=== PATIENT | male | born 1950 | race Caucasian/White ===

== ENCOUNTER 2023-01-09 14:10 | Emergency (ER) | payer MEDICARE, BC, SELFPAY ==
[2023-01-09] VITALS (32 sets, daily range): BP systolic 87–124; BP diastolic 38–74; PULSE 98–134; RESP 18–21; TEMP 36.5–36.9; O2SAT 91–97; BMI 25.8
[2023-01-09 14:48] LABS: Basophils Absolute Auto 0.04 K/uL (0.00-0.30); Basophils Percent Auto 0.4 % (0.0-3.0); Eosinophils Absolute Auto 0.01 K/uL (0.00-0.50); Eosinophils Percent Auto 0.1 % (0.0-7.0); Hematocrit 26.2 % (37.0-53.0); Hemoglobin* 8.4 gm/dL (13.5-17.5); Immature Granulocytes Abs Auto 0.08 K/uL (0.00-0.30); Immature Granulocytes Pct Auto 0.8 %; Lymphocytes Absolute Auto 2.19 K/uL (0.90-2.90); Lymphocytes Percent Auto 22.9 % (20-44); Mean Corpuscular HGB Conc 32 gm/dL (32-36); Mean Corpuscular Hemoglobin 27 pg (26-34); Mean Corpuscular Volume 83 fL (80-100); Monocytes Percent Auto 12.1 % (0.0-11.0); Neutrophils Percent Auto 63.7 % (42.0-72.0); Platelet Count* 380 K/uL (140-440); RDW Coefficient of Variation % 19.5 % (11.5-15.5); Red Blood Count 3.16 m/uL (4.30-5.90); White Blood Count* 9.58 K/uL (4.50-11.00)
[2023-01-09 14:49] LABS: Slide Review Reflex No
--- NOTE | 2023-01-09 14:50 | ED.NURSE ---
Call from lab, lactate 7, Dr. Bell notified.
[2023-01-09 14:55] LABS: Albumin* 2.6 g/dL (3.3-5.0); Chloride* 108 mmol/L (96-114)
[2023-01-09 14:56] LABS: Sodium* 137 mmol/L (135-149)
[2023-01-09 14:57] LABS: Potassium* 4.6 mmol/L (3.6-5.1)
[2023-01-09 14:58] LABS: Creatinine* 1.2 mg/dL (0.5-1.5); Est. Creatinine Clearance* 61.97; Estimated Glomerular Filt Rate 65 ml/min
[2023-01-09] MEDS: PANTOPRAZOLE SODIUM 40 MG INJ 80 MG IVP (14:58)
[2023-01-09 14:59] LABS: Alkaline Phosphatase* 130 U/L (40-150); Aspartate Amino Transferase* 77 U/L (12-35); Bilirubin Direct* 1.3 mg/dL (0.0-0.5); Bilirubin Total* 2.3 mg/dL (0.1-1.5); Blood Urea Nitrogen* 34 mg/dL (7-30); Calcium* 8.3 mg/dL (8.4-10.6); Carbon Dioxide* 17 mmol/L (20-32); Glucose* 125 mg/dL (60-115); Lipase* 89 U/L (23-300); Total Protein* 5.6 g/dL (6.0-8.3)
[2023-01-09] MEDS: 0.9 % SODIUM CHLORIDE 1000 ml 1,000 ML IV (14:59)
[2023-01-09 15:02] LABS: C Reactive Protein* 2.9 mg/dL (0.5-1.0); Ethanol* < 0.01 % (0.01-0.03)
[2023-01-09 15:05] LABS: Alanine Aminotransferase* 36 U/L (4-50)
[2023-01-09 15:07] LABS: INR 1.58 (0.91-1.10); Prothrombin Time 19.8 Seconds
[2023-01-09] MEDS: ONDANSETRON 2 MG/ML inj 4 MG IVP (15:10)
[2023-01-09 15:11] LABS: Troponin I* < 0.01 ng/mL (0.01-0.04)
[2023-01-09 15:25] LABS: Erythrocyte SedimentationRate* 29 mm/hr (2-15)
[2023-01-09 16:04] LABS: SARS PCR* POSITIVE SARS-CoV-2 (Negative)
--- NOTE | 2023-01-09 16:41 | ED_ITS ---
HPI - General Adult General Chief complaint: Weakness Stated complaint: Keeps nearly passing out, Blood in stool Time Seen by Provider: 01/09/23 14:16 Source: patient Mode of arrival: ambulatory Limitations: no limitations History of Present Illness HPI narrative: Patient is a 72-year-old male, extremely poor historian, coming in today complaining of vomiting blood. Patient states that was hospitalized at [facility] sometime in December for the same problem. He states that they ?got the bleeding stop and sent him home. ? He presents today with 2 days of nonstop vomiting. New patient does state that he has liver disease but does not know what kind of disease. He states that he feels poorly all over but denies any acute chest or abdominal pain. He does complain of weakness and not being able to eat for the last 2 days. I did call and speak to his , Demetra, who also states that he has liver disease (she is also not sure what kind of disease this is), COPD, alcohol use disorder. She states that while he was in [facility] he had a colonoscopy. I did speak to the nurse at [facility] who stated he also had an EGD on the 12 of December. Reviewing the extremely limited records that we received from [facility], it appears that the patient had an EGD and colonoscopy on the with a repeat EGD and colonoscopy on the . I do not have the results of either of those. His discharge medication list includes Paxil of bed as he was diagnosed with that sometime at the end december, Ventolin inhaler, Dulcolax suppositories p.r.n., melatonin as needed, multivitamin, all track some, omeprazole, Zofran, MiraLax, Mirapex, Crestor, sertraline, tramadol. His past medical history is significant for nicotine dependence, history of kidney stones, mental disorder of unclear etiology potentially secondary to previous alcohol abuse, obstructive sleep apnea, hypertension, history of TIA, COPD, alcoholic liver cirrhosis. Related Data Home Medications Medication Instructions Recorded Confirmed Advair 01/09/23 omeprazole 01/09/23 pramipexole 01/09/23 rosuvastatin 01/09/23 sertraline 01/09/23 Allergies Allergy/AdvReac Type Severity Reaction Status Date / Time No Known Drug Allergies Allergy Verified 01/09/23 14:28 Review of Systems Status of ROS: Reports: 6 or more systems reviewed and unremarkable except as noted in History and below [facility] Social History Smoking Status: Former smoker Non-prescribed substance use: denies use Non-prescribed substance use details: WAS drinking daily hard alcohol until two months ago. Exam Narrative: Exam Narrative: Well-nourished well-developed patient who vomits multiple times. Alert and oriented x3. Answers questions appropriately but is a very poor historian. Thoughts are goal oriented and rational. No tangential or magical thinking noted. Patient is pale. HEENT: Normocephalic atraumatic. Pupils are equally round reactive to light. Extraocular muscles are intact. Conjunctivae are moist without any icterus noted. Dry mucous membranes. Neck is soft. Patient is vomiting up maroon colored vomitus. Cardiovascular: Tachycardic without any murmurs Lungs: Clear to auscultation bilaterally no wheezes rhonchi or rales are appreciated. Abdomen: Protuberant and tympanic. Soft. Appears to have significant amount of ascites present. Normal bowel sounds. Extremities: Bilateral lower extremities are without edema. Skin: Pale, warm dry and intact Const: Vital Signs, click to edit/add: Vital Signs - 24 hr 01/09/23 14:17 01/09/23 14:10 01/09/23 15:30 Temperature 97.8 F Pulse Rate 131 H Pulse Rate [Left P ulse Oximeter] 116 H Respiratory Rate 20 Blood Pressure Blood Pressure [Le ft Upper Arm] 105/74 Pulse Oximetry 96 97 96 Oxygen Delivery Me thod Room Air 01/09/23 15:32 01/09/23 15:43 01/09/23 15:45 Temperature Pulse Rate 130 H 113 H 134 H Pulse Rate [Left P ulse Oximeter] Respiratory Rate Blood Pressure 88/51 L 103/70 Blood Pressure [Le ft Upper Arm] Pulse Oximetry 96 95 96 Oxygen Delivery Me thod 01/09/23 16:51 01/09/23 16:00 01/09/23 16:01 Temperature 98.1 F Pulse Rate 100 128 H 129 H Pulse Rate [Left P ulse Oximeter] Respiratory Rate 18 Blood Pressure 124/74 103/55 L Blood Pressure [Le ft Upper Arm] Pulse Oximetry 91 96 Oxygen Delivery Me thod 01/09/23 16:15 01/09/23 16:22 01/09/23 16:30 Temperature Pulse Rate 107 H 107 H 128 H Pulse Rate [Left P ulse Oximeter] Respiratory Rate Blood Pressure 87/40 L Blood Pressure [Le ft Upper Arm] Pulse Oximetry 96 95 95 Oxygen Delivery Me thod 01/09/23 16:31 01/09/23 16:45 01/09/23 16:53 Temperature Pulse Rate 128 H 110 H 98 Pulse Rate [Left P ulse Oximeter] Respiratory Rate Blood Pressure 92/38 L 124/72 Blood Pressure [Le ft Upper Arm] Pulse Oximetry 93 94 93 Oxygen Delivery Vt thod 01/09/23 17:00 01/09/23 17:02 01/09/23 17:12 Temperature 98.5 F Pulse Rate 106 H 105 H 110 H Pulse Rate [Left P ulse Oximeter] Respiratory Rate 20 Blood Pressure 114/62 114/72 Blood Pressure [Le ft Upper Arm] Pulse Oximetry 94 92 94 Oxygen Delivery Vt thod 01/09/23 17:03 01/09/23 17:15 01/09/23 17:17 Temperature Pulse Rate 108 H 111 H 109 H Pulse Rate [Left P ulse Oximeter] Respiratory Rate Blood Pressure 114/72 Blood Pressure [Le ft Upper Arm] Pulse Oximetry 91 96 95 Oxygen Delivery Vt thod 01/09/23 17:30 01/09/23 17:32 01/09/23 17:45 Temperature Pulse Rate 110 H 108 H 108 H Pulse Rate [Left P ulse Oximeter] Respiratory Rate Blood Pressure 98/61 Blood Pressure [Le ft Upper Arm] Pulse Oximetry 93 94 93 Oxygen Delivery Vt thod 01/09/23 17:47 01/09/23 17:57 Temperature 97.7 F Pulse Rate 131 H 107 H Pulse Rate [Left P ulse Oximeter] Respiratory Rate 18 Blood Pressure 106/57 L 106/57 L Blood Pressure [Le ft Upper Arm] Pulse Oximetry 93 Oxygen Delivery Me thod Course Course Hospital Course: Two IVs were placed and IV fluids were started right away. EKG, read by me, shows sinus tachycardia. Will start the patient IV Protonix and labs were drawn. Hemoglobin low at 8.4, 1 unit of packed red blood cells was ordered and given. I did speak to , ICU physician at [facility] who recommended we also start the patient on octreotide. Patient was accepted back to [facility] for admission. Pulse did come down to 103 from 130 with a L of fluid and blood pressure remained steady in the low 100s to 1 teens systolic. Reevaluation(s) Reevaluation #1: I was able to obtain better medical records for the patient. It appears that he was seen in the [place] ER on the 27 of December where he presented for shortness of breath. He was diagnosed with COVID-19 at that time and appears that his symptoms started around the or the 23 of December. He also had a paracentesis done during that visit with 3 L of fluid was obtained. At that time he also had a chest CT which showed bilateral atelectasis and peripheral ground-glass attenuation of the anterior right upper lobe. Abdomen pelvis CT showed findings suggestive of portal hypertension including moderate abdominal ascites, splenomegaly and small paraesophageal varices. He does have chronic hepatic parenchymal disease. Abdominal fluid was negative for malignancy. It appears that patient was admitted to the hospital on 12/12/2022 with a GI bleed that was thought to be secondary to portal hypertension gastropathy that was noted to be oozing and responded to an octreotide drip in the hospital. Appears that his hemoglobin on 12/27/2022 was 10.2. During that ER visit, his pulse was consistently in the low 100s to 1 teens, blood pressure however was in the 130s to 140s systolic. Vital Signs Vital signs: Initial Vital Signs Pulse Oximetry 97 01/09/23 14:10 Vital Signs Pulse Oximetry 97 01/09/23 14:10 Temperature 97.7 F 01/09/23 17:57 Pulse Rate 107 H 01/09/23 17:57 Respiratory Rate 18 01/09/23 17:57 Blood Pressure 106/57 L 01/09/23 17:57 Pulse Oximetry 93 01/09/23 17:47 Oxygen Delivery Method Room Air 01/09/23 14:17 Medical Decision Making MDM Narrative Medical decision making narrative: 72-year-old male with GI bleed, hypotension, liver cirrhosis-treatment and stabilization per above. Patient will be transferred back to [facility] via ALS ground. Patient stable at the time of transfer. Medical Records Medical records reviewed: Yes I reviewed the patient's medical records Lab Data Lab results reviewed: Yes I reviewed the patient's lab results Labs: Lab Results 01/09/23 01/09/23 01/09/23 Range/Units 14:35 14:39 15:10 WBC 9.58 (4.50-11.00) K/uL RBC 3.16 L (4.30-5.90) m/uL Hgb 8.4 L (13.5-17.5) gm/dL Hct 26.2 L (37.0-53.0) % MCV 83 (80-100) fL MCH 27 (26-34) pg MCHC 32 (32-36) gm/dL RDW Coeff of Kam 19.5 H (11.5-15.5) % Plt Count 380 (140-440) K/uL Neut % (Auto) 63.7 (42.0-72.0) % Lymph % (Auto) 22.9 (20-44) % [place] % (Auto) 12.1 H (0.0-11.0) % Eos % (Auto) 0.1 (0.0-7.0) % Baso % (Auto) 0.4 (0.0-3.0) % Neut # (Auto) 6.10 (1.7-7.0) K/uL Lymph # (Auto) 2.19 (0.90-2.90) K/uL [place] # (Auto) 1.20 H (0.00-0.90) K/UL Eos # (Auto) 0.01 (0.00-0.50) K/uL Baso # (Auto) 0.04 (0.00-0.30) K/uL ESR 29 H (2-15) mm/hr INR 1.58 H (0.91-1.10) Sodium 137 (135-149) mmol/L Potassium 4.6 (3.6-5.1) mmol/L Chloride 108 (96-114) mmol/L Carbon Dioxide 17 L (20-32) mmol/L BUN 34 H (7-30) mg/dL Creatinine 1.2 (0.5-1.5) mg/dL Estimated Creat Clear 61.97 Estimated GFR 65 ml/min Glucose 125 H (60-115) mg/dL Lactate 7.0 H* (0.5-1.9) mmol/L Calcium 8.3 L (8.4-10.6) mg/dL Total Bilirubin 2.3 H (0.1-1.5) mg/dL Direct Bilirubin 1.3 H (0.0-0.5) mg/dL AST 77 H (12-35) U/L ALT 36 (4-50) U/L Alkaline Phosphatase 130 (40-150) U/L Troponin I < 0.01 L (0.01-0.04) ng/mL C-Reactive Protein 2.9 H (0.5-1.0) mg/dL Total Protein 5.6 L (6.0-8.3) g/dL Albumin 2.6 L (3.3-5.0) g/dL Lipase 89 (23-300) U/L Ethyl Alcohol < 0.01 L (0.01-0.03) % SARS-CoV-2 (PCR) POSITIVE SARS-CoV-2 A (Negative) Blood Type O Positive Antibody Screen NEGATIVE Crossmatch (AHG) See Detail ECG Data Attestation: I personally reviewed and interpreted this ECG as follows: Critical Care Time Critical Care Time Total Critical Care Time in Minutes: 120 Discharge Plan Discharge Clinical Impression: Acute hypotension, ABLA (acute blood loss anemia), Acute GI bleeding Patient Disposition: Xfer Other Condition: Stable Prescriptions: No Action pramipexole omeprazole Advair sertraline rosuvastatin Follow Up/Referrals: Provider,Not a Local [Primary Care Provider] - Stand Alone Forms: [employer] Info Instructions
[2023-01-09] MEDS: 0.9 % SODIUM CHLORIDE 250 ml IV (17:00)
--- NOTE | 2023-01-09 18:32 | ED.NURSE ---
Pt departs ER now via ambulance to [facility]. Pt Demetra hernandez.
--- NOTE | 2023-01-09 18:45 | ED.NURSE ---
Report given to Indra at [facility] [phone].
--- NOTE | 2023-01-09 18:48 | ED.NURSE ---
Pt did depart with octreotide infusing.
== END 2023-01-09 18:30 | disposition other institution (70) ==
PROVIDERS: Emergency Provider Family Medicine
DX: K92.2 Gastrointestinal hemorrhage, unspecified (principal); I95.9 Hypotension, unspecified; D62 Acute posthemorrhagic anemia
CPT/HCPCS: 36415; 36430; 80048; 80076; 82077; 83605; 83690; 84484; 85025; 85610; 85651; 86140; 86850; 86900; 86901; 86922; 87635; 93005; 94761; 96374; 96375; 99285; 99291; 99292; C9113; J2354; J2405; J7030; J7050; P9016

== ENCOUNTER 2023-01-09 18:13 | Outpatient (CLI) | payer MEDICARE, BC, SELFPAY | END 2023-01-09 18:14 | disposition home or self-care (01) | PROVIDERS: Visit Provider Family Medicine | DX: K92.0 Hematemesis (principal) | CPT/HCPCS: A0425; A0434 ==